=== PATIENT | female | born 1965 | race African-American/Black ===

== ENCOUNTER 2016-11-11 12:41 | Emergency (ER) | payer MEDICAID ==
[~2016-11-11] VITALS: Ht 144.8 cm; Wt 121.6 kg
[~2016-11-11 12:41] MED LIST: ALBU18HF INH; ALBU8.5H5 PO; AMLO5TAB2 PO; ASPI-515 PO; BENZ100C4 PO; ENAL10TA PO; FLUT1AER INH; GABA300C10 PO; GLIM1TAB2 PO; GLIP10TA13 PO; GUAI200T3 PO; HYDR12.53 PO; IBUP800T PO; INSU100I18 SQ-INSULIN; INSU100V8 IM; INSU100V8 SQ; IPRA3AMP NPPB; METF500T4 PO; OMEP-110 PO; PRED20TA PO
[2016-11-11] MEDS ORDERED: MORPHINE SULFATE 4 MG/ML, 1ML ONE (13:55)
[2016-11-11] MEDS ORDERED: ONDANSETRON 2MG/ML, 2ML ONE (13:56)
[2016-11-11] MEDS ORDERED: MORPHINE SULFATE 4 MG/ML, 1ML IVPush PRN (14:00)
[2016-11-11] MEDS ORDERED: SODIUM CHLORIDE 0.9% 1,000ML IVBOLUS ONE (14:00)
[2016-11-11] MEDS ORDERED: ONDANSETRON 2MG/ML, 2ML IVPush ONE (14:00)
[2016-11-11] MEDS ORDERED: SODIUM CHLORIDE FLUSH 10ML SYR IVF ONE (14:00)
[2016-11-11] MEDS ORDERED: HYDROmorphone 1 MG/ML, 1ML ONE (15:11)
[2016-11-11 15:13] LABS: ASPARTATE AMINO TRANSFERASE 9 U/L (15-37); BLOOD UREA NITROGEN 30 mg/dL (7-18)
[2016-11-11] MEDS ORDERED: HYDROmorphone 1 MG/ML, 1ML IM ONE (15:30)
[2016-11-11 15:52] LABS: PATH.CAST-FLAG NOT PRESENT; SPERM-FLAG NOT PRESENT; SRC-FLAG NOT PRESENT; XTAL-FLAG NOT PRESENT; YLC-FLAG NOT PRESENT
[2016-11-11] MEDS ORDERED: HYDR12.53 PO (16:10)
[2016-11-11 17:11] VITALS: BP 154/89
[2016-11-11] MEDS ORDERED: OMNIPAQUE 350 MG/ML, 150 ML BOTTLE ONE (17:53)
[2016-11-11] MEDS ORDERED: HYDROcodone/APAP 5/325 TABLET PO ONE (18:00)
[2016-11-11] MEDS ORDERED: HYDROcodone/APAP 5/325 TABLET ONE (18:03)
== END 2016-11-11 18:09 ==
LOC: ED 14:31
DX: K42.9 Umbilical hernia without obstruction or gangrene (principal); E11.9 Type 2 diabetes mellitus without complications; I10 Essential (primary) hypertension; J45.909 Unspecified asthma, uncomplicated
CPT/HCPCS: 36415; 74177; 80053; 81001; 83690; 85025; 87086; 93005; 96361; 96372; 96374; 99285; J1170; J2405; J7030; Q9967

== ENCOUNTER 2016-12-19 13:16 | Inpatient (IN) | payer MEDICAID ==
[~2016-12-19] VITALS: Ht 144.8 cm; Wt 122.2 kg
[2016-12-19] MEDS ORDERED: LACTATED RINGERS 1,000 ML IV SCH (13:44)
[2016-12-19 14:17] VITALS: BP 145/86
[2016-12-19] MEDS ORDERED: FENTANYL PF 250 MCG/5ML ONE ×2 (14:34→17:31)
[2016-12-19] MEDS ORDERED: MIDAZOLAM 1 MG/ML, 2ML ONE (14:34)
[2016-12-19] MEDS ORDERED: INSU100I18 SQ-INSULIN (14:53)
[2016-12-19] MEDS ORDERED: GLIM2TAB2 PO (14:53)
[2016-12-19] MEDS ORDERED: [UNRECOGNIZED DRUG - OTHER] PO (14:53)
[2016-12-19] MEDS ORDERED: INSU100V8 SQ (14:54)
[2016-12-19] MEDS ORDERED: FLUT1AER INH (14:54)
[2016-12-19] MEDS ORDERED: INSU300I SQ-INSULIN (15:05)
[2016-12-19] MEDS ORDERED: MEPERIDINE/PF 25MG/0.5ML IVPush PRN (17:00)
[2016-12-19] MEDS ORDERED: PROMETHAZINE 25 MG/ML, 1ML IV PRN (17:00)
[2016-12-19] MEDS ORDERED: ROCURONIUM 10 MG/ML ONE (17:00)
[2016-12-19] MEDS ORDERED: LABETALOL 5MG/ML, 20ML IV PRN (17:00)
[2016-12-19] MEDS ORDERED: OXYcodone 5 MG/5 ML ORAL.SOL UDC PO PRN (17:00)
[2016-12-19] MEDS ORDERED: NEOSTIGMINE 1 MG/ML, 10ML ONE (17:00)
[2016-12-19] MEDS ORDERED: ONDANSETRON 2MG/ML, 2ML ONE ×2 (17:00→19:27)
[2016-12-19] MEDS ORDERED: ONDANSETRON 2MG/ML, 2ML IVPush PRN ×2 (17:00→22:30)
[2016-12-19] MEDS ORDERED: GLYCOPYRROLATE 0.2MG/1ML ONE (17:00)
[2016-12-19] MEDS ORDERED: PROPOFOL 10 MG/ML, 20ML ONE (17:00)
[2016-12-19] MEDS ORDERED: hydrALAzine 20 MG/ML, 1ML IV PRN (17:00)
[2016-12-19] MEDS ORDERED: LABETALOL 5MG/ML 40ML VIAL ONE (17:00)
[2016-12-19] MEDS ORDERED: HYDROmorphone 1 MG/ML, 1ML IV PRN (17:00)
[2016-12-19] MEDS ORDERED: METOCLOPRAMIDE 5 MG/ML, 2ML IV PRN (17:00)
[2016-12-19] MEDS ORDERED: CEFAZOLIN 1,000 MG ONE (17:00)
[2016-12-19] MEDS ORDERED: BUPIVACAINE/PF-EPI 0.5% 1:200K IM ONE (17:08)
[2016-12-19] MEDS ORDERED: ALBUTEROL SULFATE 2.5 MG/3 ML ONE (19:14)
[2016-12-19] MEDS ORDERED: FENTANYL PF 100 MCG/2ML ONE (19:23)
[2016-12-19] MEDS ORDERED: OXYcodone 5 MG/5 ML ORAL.SOL UDC ONE ×2 (19:23→19:24)
[2016-12-19] MEDS ORDERED: HYDROmorphone 1 MG/ML, 1ML ONE (19:23)
[2016-12-19] MEDS: FENTANYL PF 100 MCG/2ML IV PRN ×2 (19:25→19:44)
[2016-12-19] MEDS ORDERED: hydrALAzine 20 MG/ML, 1ML ONE (19:49)
[2016-12-19] MEDS ORDERED: PROMETHAZINE 25 MG/ML, 1ML ONE (19:49)
[2016-12-19] MEDS ORDERED: INSULIN SINGLE DOSE, ER SQ-INSULIN ONE (20:17)
[2016-12-19] MEDS ORDERED: INSULIN REGULAR 100 UNITS/ML, 3ML VIAL SQ-INSULIN ONE (20:30)
[2016-12-19] MEDS ORDERED: ALBUTEROL SULFATE 2.5 MG/3 ML NPPB PRN (22:30)
[2016-12-19] MEDS ORDERED: DIPHENHYDRAMINE 50 MG/ML, 1ML IVPush PRN (22:30)
[2016-12-19] MEDS ORDERED: HYDROmorphone 2 MG/ML, 1ML IV PRN (22:30)
[2016-12-19] MEDS: LACTATED RINGERS 1,000 ML IV SCH (22:30)
[2016-12-20] MEDS: metFORMIN 500 MG TABLET PO SCH ×3 (00:34→16:34)
[2016-12-20] MEDS: INSULIN DETEMIR 100 UNITS/ML, PEN SQ-INSULIN SCH ×3 (00:34→21:18)
[2016-12-20] MEDS: ENALAPRIL 10 MG TABLET PO SCH (00:35)
[2016-12-20] MEDS: AMLODIPINE 5 MG TABLET PO SCH (00:35)
[2016-12-20 03:05] VITALS: BP 176/82
[2016-12-20] MEDS: HYDROcodone/APAP 10/325 MG TABLET PO PRN ×3 (05:30→19:50)
[2016-12-20] MEDS: ALBUTEROL/IPRATROPIUM 2.5MG/0.5MG, 3 ML NPPB SCH ×4 (07:00→18:00)
[2016-12-20 07:25] VITALS: BP 154/84
[2016-12-20] MEDS: GUAIFENESIN 100 MG/5 ML, 5ML UDC PO SCH (08:59)
[2016-12-20] MEDS: HYDROCHLOROTHIAZIDE 12.5 MG CAPSULE PO SCH (08:59)
[2016-12-20] MEDS: ASPIRIN 81 MG TABLET CHEW PO SCH (08:59)
[2016-12-20] MEDS: GLIMEPIRIDE 1 MG TABLET PO SCH (09:00)
[2016-12-20] MEDS: GABAPENTIN 300 MG CAPSULE PO SCH ×2 (09:00→21:17)
[2016-12-20] MEDS ORDERED: ENALAPRIL 10 MG TABLET PO SCH (09:00)
[2016-12-20] MEDS ORDERED: AMLODIPINE 5 MG TABLET PO SCH (09:00)
[2016-12-20] MEDS: INSULIN ASPART 100 UNITS/ML, PEN SQ-INSULIN SCH (09:07)
[2016-12-20] MEDS: LACTATED RINGERS 1,000 ML IV SCH ×2 (11:37→21:18)
[2016-12-20] MEDS: FLUTICASONE/VILANTEROL 100-25MCG/INH INH SCH (11:37)
[2016-12-20 14:45] VITALS: BP 137/74
[2016-12-20 18:57] VITALS: BP 169/91
[2016-12-21] MEDS: HYDROcodone/APAP 10/325 MG TABLET PO PRN ×2 (00:39→05:28)
[2016-12-21] MEDS ORDERED: HYDR-3307 PO (00:54)
[2016-12-21 01:17] VITALS: BP 130/74
[2016-12-21 06:44] VITALS: BP 123/75
[2016-12-21] MEDS: FLUTICASONE/VILANTEROL 100-25MCG/INH INH SCH (08:25)
[2016-12-21] MEDS: GLIMEPIRIDE 1 MG TABLET PO SCH (08:26)
[2016-12-21] MEDS: ASPIRIN 81 MG TABLET CHEW PO SCH (08:26)
[2016-12-21] MEDS: HYDROCHLOROTHIAZIDE 12.5 MG CAPSULE PO SCH (08:26)
[2016-12-21] MEDS: metFORMIN 500 MG TABLET PO SCH (08:26)
[2016-12-21] MEDS: ENALAPRIL 10 MG TABLET PO SCH (08:26)
[2016-12-21] MEDS: GABAPENTIN 300 MG CAPSULE PO SCH (08:26)
[2016-12-21] MEDS: INSULIN ASPART 100 UNITS/ML, PEN SQ-INSULIN SCH (08:27)
[2016-12-21] MEDS: INSULIN DETEMIR 100 UNITS/ML, PEN SQ-INSULIN SCH (08:27)
[2016-12-21] MEDS: GUAIFENESIN 100 MG/5 ML, 5ML UDC PO SCH (08:27)
[2016-12-21] MEDS: AMLODIPINE 5 MG TABLET PO SCH (08:27)
[2016-12-21] MEDS: ALBUTEROL/IPRATROPIUM 2.5MG/0.5MG, 3 ML NPPB SCH (08:55)
[2016-12-21 10:29] VITALS: BP 145/74
== END 2016-12-21 11:05 | disposition home or self-care (01) | DRG 353 ==
LOC: OUT 13:16 → 4NOR 21:51 → OUT 22:45 → 4NOR 22:45 → OBSVTOIN 12-20 08:00
PROVIDERS: ADMIT Surgery; ATTEND Surgery
PROC: 8E0W4CZ Robotic Assisted Procedure of Trunk Region, Percutaneous Endoscopic Approach (ICD-10-PCS; 2016-12-19)
PROC: 0WUF4JZ Supplement Abdominal Wall with Synthetic Substitute, Percutaneous Endoscopic Approach (ICD-10-PCS; principal; 2016-12-19 15:30)
DX: K43.6 Other and unspecified ventral hernia with obstruction, without gangrene (principal); J95.821 Acute postprocedural respiratory failure; Z68.43 Body mass index [BMI] 50.0-59.9, adult; E66.9 Obesity, unspecified; I10 Essential (primary) hypertension; M19.90 Unspecified osteoarthritis, unspecified site; J44.9 Chronic obstructive pulmonary disease, unspecified; E11.9 Type 2 diabetes mellitus without complications; K43.0 Incisional hernia with obstruction, without gangrene; Z98.51 Tubal ligation status; Z87.891 Personal history of nicotine dependence; Z82.49 Family history of ischemic heart disease and other diseases of the circulatory system; Z80.3 Family history of malignant neoplasm of breast
CPT/HCPCS: 36415; 82962; 85025; 94640; G0378; J0690; J1170; J1815; J2250; J2405; J2550; J2704; J2710; J3010; J3490; J7613; J7620; C1781; J7120

== ENCOUNTER 2016-12-23 21:18 | Emergency (ER) | payer MEDICAID ==
[~2016-12-23] VITALS: Ht 144.8 cm; Wt 122.2 kg
[~2016-12-23 21:18] MED LIST changes: +GLIM2TAB2 PO; +HYDR-3307 PO; +INSU300I SQ-INSULIN; +[UNRECOGNIZED DRUG - OTHER] PO
[2016-12-23 21:20] VITALS: BP 128/77
[2016-12-23] MEDS ORDERED: MUPIROCIN OINT 2%, 22GM TP ONE (22:30)
== END 2016-12-23 22:52 | disposition home or self-care (01) ==
LOC: ED 22:23
DX: T81.31XA Disruption of external operation (surgical) wound, not elsewhere classified, initial encounter (principal); Z90.49 Acquired absence of other specified parts of digestive tract; E66.01 Morbid (severe) obesity due to excess calories; I10 Essential (primary) hypertension; J45.909 Unspecified asthma, uncomplicated; K75.9 Inflammatory liver disease, unspecified; M19.90 Unspecified osteoarthritis, unspecified site; Z68.43 Body mass index [BMI] 50.0-59.9, adult; E11.9 Type 2 diabetes mellitus without complications
CPT/HCPCS: 99282

== ENCOUNTER 2017-02-15 12:50 | Inpatient (IN) | payer MEDICAID ==
[~2017-02-15] VITALS: Ht 144.8 cm; Wt 125.4 kg
[~2017-02-15 12:50] MED LIST changes: +BENZ100C17 PO; -BENZ100C4 PO; +IBUP-1223 PO; -IBUP800T PO
[2017-02-15] MEDS ORDERED: SODIUM CHLORIDE FLUSH 10ML SYR IVF ONE (13:00)
[2017-02-15] MEDS ORDERED: MORPHINE SULFATE 4 MG/ML, 1ML IVPush PRN (13:00)
[2017-02-15] MEDS ORDERED: ONDANSETRON 2MG/ML, 2ML IVPush ONE (13:00)
[2017-02-15] MEDS ORDERED: MORPHINE SULFATE 4 MG/ML, 1ML ONE ×2 (13:22→15:00)
[2017-02-15] MEDS ORDERED: ONDANSETRON 2MG/ML, 2ML ONE (13:22)
[2017-02-15 13:23] LABS: HEMATOCRIT 38.3 % (34.6-47.8); HEMOGLOBIN 12.3 g/dL (11.7-16.4); WHITE BLOOD COUNT 8.9 x10^3/uL (3.4-10)
[2017-02-15] MEDS: PLEASE ENTER HEIGHT AND WEIGHT MC SCH ×2 (13:25→21:30)
[2017-02-15 13:32] LABS: BLOOD UREA NITROGEN 31 mg/dL (7-18)
[2017-02-15] MEDS ORDERED: SODIUM CHLORIDE 0.9%, 500ML IVBOLUS ONE (14:00)
[2017-02-15] MEDS ORDERED: GADOBUTROL 10 MMOL/10 ML PFS ONE (14:39)
[2017-02-15] MEDS: INSULIN DETEMIR 100 UNITS/ML, PEN SQ-INSULIN SCH ×2 (16:30→22:31)
[2017-02-15] MEDS ORDERED: SENNA/DOCUSATE TABLET PO PRN (16:30)
[2017-02-15] MEDS ORDERED: DEXTROSE 50%, 50ML SYRINGE IVPush PRN (16:30)
[2017-02-15] MEDS ORDERED: BISACODYL 10 MG SUPP PR PRN (16:30)
[2017-02-15] MEDS ORDERED: GLUCAGON 1 MG IM PRN (16:30)
[2017-02-15] MEDS ORDERED: DEXTROSE 4 GM TAB.CHEW PO PRN (16:30)
[2017-02-15] MEDS ORDERED: HYDROcodone/APAP 10/325 MG TABLET ONE (16:49)
[2017-02-15] MEDS ORDERED: ASPIRIN 325 MG TABLET EC ONE (16:50)
[2017-02-15] MEDS: HYDROcodone/APAP 10/325 MG TABLET PO PRN (16:52)
[2017-02-15 17:27] LABS: ASPARTATE AMINO TRANSFERASE 14 U/L (15-37); BLOOD UREA NITROGEN 31 mg/dL (7-18)
[2017-02-15] MEDS ORDERED: ALBUTEROL/IPRATROPIUM 2.5MG/0.5MG, 3 ML NPPB PRN (17:30)
[2017-02-15 19:38] VITALS: BP 150/79
[2017-02-15 20:00] VITALS: BP 150/79
[2017-02-15] MEDS: ACETAMINOPHEN 650 MG/20.3 ML UDC PO PRN (20:13)
[2017-02-15] MEDS: INSULIN ASPART 100 UNITS/ML, PEN SQ-INSULIN SCH (21:00)
[2017-02-15] MEDS: ASPIRIN 325 MG TABLET PO SCH (22:30)
[2017-02-15] MEDS: ATORVASTATIN 80 MG TABLET PO SCH (22:30)
[2017-02-15] MEDS: GABAPENTIN 300 MG CAPSULE PO SCH (22:30)
[2017-02-15] MEDS: DOCUSATE 100 MG CAPSULE PO SCH (22:30)
[2017-02-15] MEDS: SODIUM CHLORIDE 0.9% 1,000 ML IV SCH (22:30)
[2017-02-15] MEDS: SODIUM CHLORIDE FLUSH 10ML SYR IVF SCH (22:30)
[2017-02-15] MEDS: HEPARIN 5,000 UNITS/ML, 1ML SQ SCH (22:31)
[2017-02-16 00:14] VITALS: BP 158/79
[2017-02-16] MEDS: ACETAMINOPHEN 650 MG/20.3 ML UDC PO PRN ×3 (01:29→17:35)
[2017-02-16 04:27] VITALS: BP 138/68
[2017-02-16 04:54] LABS: HEMATOCRIT 35.5 % (34.6-47.8); HEMOGLOBIN 11.6 g/dL (11.7-16.4); WHITE BLOOD COUNT 8.9 x10^3/uL (3.4-10)
[2017-02-16 05:03] LABS: BLOOD UREA NITROGEN 25 mg/dL (7-18)
[2017-02-16 05:09] LABS: ASPARTATE AMINO TRANSFERASE 12 U/L (15-37)
[2017-02-16] MEDS: SODIUM CHLORIDE 0.9% 1,000 ML IV SCH ×2 (05:48→16:49)
[2017-02-16] MEDS: HEPARIN 5,000 UNITS/ML, 1ML SQ SCH ×3 (05:48→20:29)
[2017-02-16] MEDS: ASPIRIN 325 MG TABLET PO SCH (05:48)
[2017-02-16] MEDS: INSULIN ASPART 100 UNITS/ML, PEN SQ-INSULIN SCH ×4 (07:00→20:51)
[2017-02-16 07:06] VITALS: BP 136/75
[2017-02-16] MEDS: INSULIN DETEMIR 100 UNITS/ML, PEN SQ-INSULIN SCH ×2 (08:32→20:51)
[2017-02-16] MEDS: ENALAPRIL 10 MG TABLET PO SCH (08:33)
[2017-02-16] MEDS: DOCUSATE 100 MG CAPSULE PO SCH ×2 (08:33→20:28)
[2017-02-16] MEDS: AMLODIPINE 5 MG TABLET PO SCH (08:33)
[2017-02-16] MEDS: SODIUM CHLORIDE FLUSH 10ML SYR IVF SCH ×2 (08:33→20:29)
[2017-02-16] MEDS: HYDROCHLOROTHIAZIDE 12.5 MG CAPSULE PO SCH (08:33)
[2017-02-16] MEDS: GABAPENTIN 300 MG CAPSULE PO SCH ×2 (08:33→20:29)
[2017-02-16] MEDS: ASPIRIN 81 MG TABLET EC PO SCH (08:41)
[2017-02-16] MEDS: FLUTICASONE/VILANTEROL 100-25MCG/INH INH SCH (09:55)
[2017-02-16 12:08] VITALS: BP 166/88
[2017-02-16] MEDS: HYDROcodone/APAP 10/325 MG TABLET PO PRN ×2 (12:13→20:28)
[2017-02-16 17:37] VITALS: BP 160/66
[2017-02-16 19:18] VITALS: BP 166/83
[2017-02-16] MEDS: ATORVASTATIN 80 MG TABLET PO SCH (20:28)
[2017-02-17 01:05] VITALS: BP 172/93
[2017-02-17] MEDS: SODIUM CHLORIDE 0.9% 1,000 ML IV SCH ×2 (03:23→12:36)
[2017-02-17 03:58] VITALS: BP_SYST 147; BP_SYST 178; BP_DIAS 74; BP_DIAS 75
[2017-02-17] MEDS: ACETAMINOPHEN 650 MG/20.3 ML UDC PO PRN (03:58)
[2017-02-17] MEDS: ASPIRIN 81 MG TABLET EC PO SCH (05:40)
[2017-02-17] MEDS: HEPARIN 5,000 UNITS/ML, 1ML SQ SCH ×2 (05:40→12:37)
[2017-02-17 05:48] LABS: BLOOD UREA NITROGEN 25 mg/dL (7-18)
[2017-02-17 06:57] VITALS: BP 166/92
[2017-02-17] MEDS: ENALAPRIL 10 MG TABLET PO SCH (08:15)
[2017-02-17] MEDS: AMLODIPINE 5 MG TABLET PO SCH (08:15)
[2017-02-17] MEDS: DOCUSATE 100 MG CAPSULE PO SCH (08:15)
[2017-02-17] MEDS: GABAPENTIN 300 MG CAPSULE PO SCH (08:15)
[2017-02-17] MEDS: HYDROCHLOROTHIAZIDE 12.5 MG CAPSULE PO SCH (08:15)
[2017-02-17] MEDS: FLUTICASONE/VILANTEROL 100-25MCG/INH INH SCH (08:16)
[2017-02-17] MEDS: INSULIN DETEMIR 100 UNITS/ML, PEN SQ-INSULIN SCH (08:16)
[2017-02-17] MEDS: HYDROcodone/APAP 10/325 MG TABLET PO PRN ×3 (08:16→16:50)
[2017-02-17] MEDS: SODIUM CHLORIDE FLUSH 10ML SYR IVF SCH (08:16)
[2017-02-17] MEDS: INSULIN ASPART 100 UNITS/ML, PEN SQ-INSULIN SCH ×3 (08:17→16:49)
[2017-02-17 12:57] VITALS: BP 169/90
[2017-02-17] MEDS ORDERED: ASPI-515 PO (14:44)
[2017-02-17] MEDS ORDERED: ATOR-2 PO (14:44)
[2017-02-17 15:48] VITALS: BP 159/89
== END 2017-02-17 17:10 | disposition home or self-care (01) | DRG 65 ==
LOC: ED 13:11 → EDIP 15:59 → 4EST 19:03
PROVIDERS: ADMIT Internal Medicine; ATTEND Internal Medicine
DX: I63.539 Cerebral infarction due to unspecified occlusion or stenosis of unspecified posterior cerebral artery (principal); E44.1 Mild protein-calorie malnutrition; E11.21 Type 2 diabetes mellitus with diabetic nephropathy; E11.40 Type 2 diabetes mellitus with diabetic neuropathy, unspecified; Q21.1 Atrial septal defect; Z68.43 Body mass index [BMI] 50.0-59.9, adult; E11.22 Type 2 diabetes mellitus with diabetic chronic kidney disease; E66.01 Morbid (severe) obesity due to excess calories; H54.7 Unspecified visual loss; I12.9 Hypertensive chronic kidney disease with stage 1 through stage 4 chronic kidney disease, or unspecified chronic kidney disease; J44.9 Chronic obstructive pulmonary disease, unspecified; M19.90 Unspecified osteoarthritis, unspecified site; M54.30 Sciatica, unspecified side; N18.3 Chronic kidney disease, stage 3 (moderate); Z79.4 Long term (current) use of insulin; Z79.82 Long term (current) use of aspirin; Z87.891 Personal history of nicotine dependence; Z99.81 Dependence on supplemental oxygen
CPT/HCPCS: 36415; 70553; 80048; 80053; 80061; 82040; 82962; 83036; 85025; 85610; 85651; 93005; 93306; 93880; 96374; 96375; A9585; J1644; J1815; J2405; 92523-GN; J7030; J7040

== ENCOUNTER → 2017-12-19 | Outpatient (CLI) | payer MEDICAID ==
[~2017-12-19] MED LIST changes: +ATOR-2 PO; +BENZ-17 PO; -BENZ100C17 PO; -METF500T4 PO; +METF500T5 PO
== END | disposition home or self-care (01) ==
LOC: CVU 15:48
PROVIDERS: ATTEND Internal Medicine
DX: I07.1 Rheumatic tricuspid insufficiency (principal); I11.9 Hypertensive heart disease without heart failure; E11.9 Type 2 diabetes mellitus without complications; J44.9 Chronic obstructive pulmonary disease, unspecified; J45.909 Unspecified asthma, uncomplicated; Q21.1 Atrial septal defect; Z86.73 Personal history of transient ischemic attack (TIA), and cerebral infarction without residual deficits
CPT/HCPCS: 93308; 93321; 93325

== ENCOUNTER 2018-08-11 09:58 | Emergency (ER) | payer MEDICAID ==
[~2018-08-11] VITALS: Ht 144.8 cm; Wt 113.0 kg
[~2018-08-11 09:58] MED LIST changes: +AMLO-150 PO; -AMLO5TAB2 PO; +HYDR12.517 PO; -HYDR12.53 PO; -IPRA3AMP NPPB; +IPRA3AMP30 NPPB; +METF500T17 PO; -METF500T5 PO
--- NOTE | 2018-08-11 10:15 | NUR ---
PT TO ED FOR SOB STARTING LAST NIGHT IMMEDIATELY SMOKING MARIJUANA. PER EMS, PT WEARS 2LNC AT ALL TIMES. UPON ARRIVAL AT SCENE, PT WAS WEARING 4LNC WTIH SAT AT 72%. PT ARRIVES ON 15L NRB AND IS CONTINUED IN ROOM. IV WAS ESTABLISHED EN ROUTE AND 1 DUONEB TX WAS GIVEN BY EMS. PT CONNECTED TO ALL MONITORS. HTN 160S (PT STATES HAS NOT TAKEN DAILY MEDICATIONS TODAY), ALL OTHER VSS. EDMD ASSESSMENT COMPLETE. AWAITING ORDERS.
[2018-08-11] MEDS ORDERED: methylPREDNISolone SOD SUCC 125 MG/2 ML ONE (10:24)
[2018-08-11] MEDS ORDERED: ALBUTEROL/IPRATROPIUM 2.5MG/0.5MG, 3 ML ONE (10:26)
[2018-08-11] MEDS ORDERED: PLEASE ENTER HEIGHT AND WEIGHT MC SCH (10:30)
[2018-08-11] MEDS ORDERED: methylPREDNISolone SOD SUCC 125 MG/2 ML IVP ONE (10:30)
[2018-08-11] MEDS ORDERED: ALBUTEROL/IPRATROPIUM 2.5MG/0.5MG, 3 ML NPPB SCH (10:30)
[2018-08-11] MEDS ORDERED: INSU100V8 SQ (10:37)
[2018-08-11] MEDS ORDERED: ENAL20TA PO (10:37)
[2018-08-11] MEDS ORDERED: CLOP75TA PO (10:37)
[2018-08-11] MEDS ORDERED: METF500T17 PO (10:37)
[2018-08-11] MEDS ORDERED: HYDR25TA6 PO (10:37)
[2018-08-11] MEDS ORDERED: MELA10TA PO (10:37)
[2018-08-11] MEDS ORDERED: GABA300C10 PO (10:37)
[2018-08-11 10:52] LABS: BASOPHILS # (AUTO) 0.03 x10^3/uL (0-0.1); BASOPHILS % (AUTO) 0 % (0-1); EOSINOPHILS # (AUTO) 0.07 x10^3/uL (0-0.4); EOSINOPHILS % (AUTO) 1 % (1-7); LYMPHOCYTES % (AUTO) 16 % (22-44); MD NO; MEAN CORPUSCULAR HEMOGLOBIN 29.2 pg (27.0-34.8); MEAN CORPUSCULAR HGB CONC 31.4 g/dL (32.4-35.8); MEAN CORPUSCULAR VOLUME 92.9 fL (80-100); MEAN PLATELET VOLUME 7.7 fL (7.4-10.4); MONOCYTES # (AUTO) 0.15 x10^3/uL (0.2-0.8); MONOCYTES % (AUTO) 2 % (2-9); NEUTROPHILS # (AUTO) 7.14 x10^3/uL (1.8-6.8); NEUTROPHILS % (AUTO) 81 % (42-75); PLATELET COUNT 368 x10^3/uL (130-400); RED BLOOD COUNT 4.47 x10^6/uL (3.82-5.3); RED CELL DISTRIBUTION WIDTH 17.7 % (9.6-15.2)
[2018-08-11 10:59] LABS: ALBUMIN 3.4 g/dL (3.4-5.0); CALCIUM 8.9 mg/dL (8.5-10.1); CREATININE 1.67 mg/dL (0.55-1.02)
[2018-08-11 11:06] LABS: ANION GAP 4 mmol/L (5-15); CHLORIDE 108 mmol/L (98-107)
--- NOTE | 2018-08-11 11:18 | NUR ---
PT MEDICATED PER AUG. XRAY COMPLETE. LABS DRAWN. LAB AT BEDSIDE AT THIS TIME TO COLLECT NEW ORDER FOR BLOOD CULTURES. VSS ON 15L NRB. NO NEEDS AT THIS TIME. CALL [facility].
--- NOTE | 2018-08-11 12:36 | NUR ---
all results back at this time. chart up for rechceck.
[2018-08-11 12:47] VITALS: BP 166/85
--- NOTE | 2018-08-11 12:48 | NUR ---
pt resting in room with eyes closed. vss. no needs at this time. call light within reach. chart up for recheck.
== END 2018-08-11 14:35 | disposition home or self-care (01) ==
LOC: ED 11:02
DX: J44.1 Chronic obstructive pulmonary disease with (acute) exacerbation (principal); I10 Essential (primary) hypertension; E11.9 Type 2 diabetes mellitus without complications; J44.9 Chronic obstructive pulmonary disease, unspecified; Z86.73 Personal history of transient ischemic attack (TIA), and cerebral infarction without residual deficits; Z90.89 Acquired absence of other organs; Z87.891 Personal history of nicotine dependence
CPT/HCPCS: 36415; 71045; 80048; 82040; 83605; 84145; 85025; 87040; 93005; 94640; 96374; 99284; J2930; J7620

== ENCOUNTER 2018-09-22 14:07 | Emergency (ER) | payer MEDICAID ==
[~2018-09-22] VITALS: Ht 144.8 cm; Wt 117.1 kg
[~2018-09-22 14:07] MED LIST changes: +CLOP75TA PO; +ENAL20TA PO; +HYDR25TA6 PO; +MELA10TA PO
[2018-09-22] MEDS ORDERED: FAMOTIDINE 20 MG TABLET ONE (14:22)
[2018-09-22] MEDS ORDERED: DIPHENHYDRAMINE 25 MG CAPSULE ONE (14:22)
--- NOTE | 2018-09-22 14:28 | NUR ---
PT TO ED FOR ALLERGIC REACTION TO UNKNOWN FOOD YESTERDAY. PT STATES RIGHT SIDE OF UPPER LIP IS SWOLLEN. THIS RN IS UNABLE TO APPRECIATE EDEMA. PT STATES SAME HAPPENED 2 WEEKS AGO, BUT LIP SWELLING WENT DOWN SAME DAY. PT STATES NO SOB OR ANY OTHER SWELLING. PT ABLE TO MAINTAIN PATENT AIRWAY BY SELF. CONNECTED TO MONITORS. VSS. EDMD TO BEDSIDE FOR ASSESSMENT. PT MEDICATED PER AUG. AWAITING FURTHER ORDERS.
[2018-09-22] MEDS ORDERED: FAMOTIDINE 20 MG TABLET PO ONE (14:30)
[2018-09-22] MEDS ORDERED: DIPHENHYDRAMINE 25 MG CAPSULE PO ONE (14:30)
[2018-09-22 14:32] VITALS: BP 135/74
== END 2018-09-22 14:56 | disposition home or self-care (01) ==
LOC: ED 14:15
DX: T78.3XXA Angioneurotic edema, initial encounter (principal); I10 Essential (primary) hypertension; E11.9 Type 2 diabetes mellitus without complications; J45.909 Unspecified asthma, uncomplicated; Z86.19 Personal history of other infectious and parasitic diseases; Y92.9 Unspecified place or not applicable
CPT/HCPCS: 99283; Q0163

== ENCOUNTER 2018-09-30 09:20 | Emergency (ER) | payer MEDICAID ==
[~2018-09-30] VITALS: Ht 144.8 cm; Wt 118.9 kg
[2018-09-30 09:23] VITALS: BP 165/94
--- NOTE | 2018-09-30 09:43 | NUR ---
PT HAS SWELING OF LIPS BUT DENIES TONGUE OR THROAT SWELLING. PT HAD BEEN SEEN FOR SAME AND TAKEN OFF [employer]LYSSES INHIBITOR. MD TALKING WITH PT ABOUT TX. PT UNABLE TO TAKE STEROIDS BECAUSE OF UPCOMING SCHEDULED SURGERY. TO BE GIVEN PRESCRIPTION FOR EPI PEN WITH INSTRUCTIONS GIVEN BY MD WHEN TO USE IT.
[2018-09-30] MEDS ORDERED: DIPHENHYDRAMINE 25 MG CAPSULE ONE (09:48)
[2018-09-30] MEDS ORDERED: DIPHENHYDRAMINE 25 MG CAPSULE PO ONE (10:00)
== END 2018-09-30 09:56 | disposition home or self-care (01) ==
LOC: ED 09:47
DX: D84.1 Defects in the complement system (principal); I10 Essential (primary) hypertension; E11.9 Type 2 diabetes mellitus without complications; J45.909 Unspecified asthma, uncomplicated; Z86.73 Personal history of transient ischemic attack (TIA), and cerebral infarction without residual deficits; Z90.49 Acquired absence of other specified parts of digestive tract; Z79.899 Other long term (current) drug therapy
CPT/HCPCS: 99283; Q0163

== ENCOUNTER 2018-10-03 12:41 | Emergency (ER) | payer MEDICAID ==
[~2018-10-03] VITALS: Ht 144.8 cm; Wt 117.0 kg
--- NOTE | 2018-10-03 13:17 | NUR ---
pt presents to ED with c/o intermittent angioedema, tongue swelling, and itchy generalized rash x 2 weeks. pt states 8 days ago, she was taken off of enalapril by pcp and started on a new bp med, however symptoms have not subsided. pt unable to recall name of new bp med. pt is a&o, resps even, shallow, unlabored. all monitors in place. pt's spo2 90% on room air, oxygen applied at 2L/min via NC. awaiting MD and orders at this time. call light in reach, warm blanket provided.
[2018-10-03] MEDS ORDERED: FAMOTIDINE 20 MG TABLET ONE (13:54)
[2018-10-03] MEDS ORDERED: DIPHENHYDRAMINE 25 MG CAPSULE ONE (13:54)
[2018-10-03] MEDS ORDERED: DIPHENHYDRAMINE 25 MG CAPSULE PO ONE (14:00)
[2018-10-03] MEDS ORDERED: ALBUTEROL/IPRATROPIUM 2.5MG/0.5MG, 3 ML NPPB ONE (14:00)
[2018-10-03] MEDS ORDERED: FAMOTIDINE 20 MG TABLET PO ONE (14:00)
[2018-10-03] MEDS ORDERED: ALBUTEROL/IPRATROPIUM 2.5MG/0.5MG, 3 ML ONE (14:11)
--- NOTE | 2018-10-03 15:00 | NUR ---
PT SLEEPING, RESPS EVEN AND UNLABORED. AWAITING FURTHER ORDERS AT THIS TIME.
[2018-10-03 15:16] VITALS: BP 124/75
--- NOTE | 2018-10-03 15:29 | NUR ---
pt provided with dc instructions and script, educated regarding dc rx for prednisone. pt states she wears oxygen at home / and has own portable oxygen in car. pt is tolerating room air at dc, however was wheeled to dc desk wearing oxygen at 2l/min, states she will reapply own portable oxygen when in car. pt educated not to drive d/t benadryl given, pt states family will drive her home. pt a&o, resps even and unlabored. speaking in full sentences without difficulty. pt states symptoms have improved s/p meds, lips appear less edematous. pt tolerating po intake with no s/sx aspiration. pt amb with steady gait at time of dc. nadn at dc.
== END 2018-10-03 15:30 | disposition home or self-care (01) ==
LOC: ED 13:25
DX: T78.3XXA Angioneurotic edema, initial encounter (principal); I10 Essential (primary) hypertension; E11.9 Type 2 diabetes mellitus without complications; J45.909 Unspecified asthma, uncomplicated; M19.90 Unspecified osteoarthritis, unspecified site
CPT/HCPCS: 94640; 99284; J7512; J7620; Q0163

== ENCOUNTER 2018-10-28 11:39 | Inpatient (IN) | payer MEDICAID ==
[~2018-10-28] VITALS: Ht 144.8 cm; Wt 122.1 kg
[2018-10-28] MEDS ORDERED: EPINEPHRINE 1 MG/ML, 1ML ONE (11:50)
[2018-10-28] MEDS ORDERED: FAMOTIDINE 20 MG/2 ML ONE (11:54)
[2018-10-28] MEDS ORDERED: DEXAMETHASONE 4 MG/ML, 5ML ONE (11:54)
[2018-10-28] MEDS ORDERED: DIPHENHYDRAMINE 50 MG/ML, 1ML ONE (11:54)
[2018-10-28] MEDS ORDERED: DIPHENHYDRAMINE 50 MG/ML, 1ML IVPush ONE (12:00)
[2018-10-28] MEDS ORDERED: DEXAMETHASONE 4 MG/ML, 1ML IVPush ONE (12:00)
[2018-10-28] MEDS ORDERED: EPINEPHRINE 1 MG/ML, 1ML SQ ONE (12:00)
[2018-10-28] MEDS ORDERED: FAMOTIDINE 20 MG/2 ML IVPush ONE (12:00)
[2018-10-28] MEDS ORDERED: SODIUM CHLORIDE FLUSH 10ML SYR IVF ONE (12:00)
--- NOTE | 2018-10-28 12:02 | NUR ---
PT TO ED FOR TONGUE SWELLING STARTING THIS AM, HX OF SAME. PT ABLE TO MANAGE SECRETIONS AND AIRWAY PATEN DESPITE SWELLING. PT TO TR04, SUCTION IN PLACE AND PROVIDED TO PT. CP MONITORS IN PLACE. MD TO BEDSIDE. ORDERS RECIEVED AND IMPLEMENTED. Addendum: 10/28/18 at 1230 by GHADA PT TO ED FOR TONGUE SWELLING STARTING THIS AM, HX OF SAME. PT ABLE TO MANAGE SECRETIONS AND AIRWAY PATENT DESPITE SWELLING. PT TO TR04, SUCTION IN PLACE AND PROVIDED TO PT. CP MONITORS IN PLACE. MD TO BEDSIDE. ORDERS RECIEVED AND IMPLEMENTED.
[2018-10-28 12:11] LABS: BASOPHILS # (AUTO) 0.02 x10^3/uL (0-0.1); BASOPHILS % (AUTO) 0 % (0-1); EOSINOPHILS # (AUTO) 0.18 x10^3/uL (0-0.4); EOSINOPHILS % (AUTO) 2 % (1-7); LYMPHOCYTES # (AUTO) 2.34 x10^3/uL (1-3.4); LYMPHOCYTES % (AUTO) 24 % (22-44); MD NO; MEAN CORPUSCULAR HEMOGLOBIN 28.5 pg (27.0-34.8); MEAN CORPUSCULAR HGB CONC 31.2 g/dL (32.4-35.8); MEAN CORPUSCULAR VOLUME 91.1 fL (80-100); MEAN PLATELET VOLUME 8.4 fL (7.4-10.4); MONOCYTES # (AUTO) 0.19 x10^3/uL (0.2-0.8); MONOCYTES % (AUTO) 2 % (2-9); NEUTROPHILS # (AUTO) 6.99 x10^3/uL (1.8-6.8); NEUTROPHILS % (AUTO) 72 % (42-75); PLATELET COUNT 327 x10^3/uL (130-400); RED BLOOD COUNT 5.01 x10^6/uL (3.82-5.3); RED CELL DISTRIBUTION WIDTH 18.7 % (9.6-15.2)
[2018-10-28 12:25] LABS: ALBUMIN 3.3 g/dL (3.4-5.0); ANION GAP 6 mmol/L (5-15); CALCIUM 9.3 mg/dL (8.5-10.1); CHLORIDE 106 mmol/L (98-107)
[2018-10-28 12:28] LABS: ALANINE AMINOTRANSFERASE 18 U/L (12-78); ALKALINE PHOSPHATASE 76 U/L (45-117); BILIRUBIN,TOTAL 0.3 mg/dL (0.2-1.0); CREATININE 1.39 mg/dL (0.55-1.02); TOTAL PROTEIN 7.6 g/dL (6.4-8.2)
--- NOTE | 2018-10-28 13:19 | NUR ---
DR BYERS TO BEDSIDE FOR EXAM. PT CONDITION HS NOT CHANGED. A&OX4. ANGIODEMEA TO TONGUE PERSISTS, PATENT ABLE TO MAINTAIN SECRETIONS AND AIRWAY PATENT. ALL CONCERNS ADRESSED.
--- NOTE | 2018-10-28 13:25 | NUR ---
REPORT TO PHYLICIA CROOKS.
[2018-10-28] MEDS ORDERED: GLUCAGON 1 MG IM PRN (13:30)
[2018-10-28] MEDS ORDERED: DEXTROSE 50%, 50ML SYRINGE IVPush PRN (13:30)
[2018-10-28] MEDS ORDERED: ONDANSETRON 2MG/ML, 2ML IVPush PRN (13:30)
[2018-10-28] MEDS ORDERED: SODIUM CHLORIDE FLUSH 10ML SYR IVF PRN (13:30)
[2018-10-28] MEDS ORDERED: DEXTROSE 4 GM TAB.CHEW PO PRN (13:30)
[2018-10-28] MEDS: SODIUM CHLORIDE 0.9% 1,000 ML IV SCH (13:56)
[2018-10-28] MEDS: methylPREDNISolone SOD SUCC 125 MG/2 ML IVPush SCH ×2 (13:56→19:23)
[2018-10-28] MEDS: DIPHENHYDRAMINE 50 MG/ML, 1ML IVPush SCH ×2 (13:56→19:22)
[2018-10-28] MEDS: ENOXAPARIN 40 MG/0.4 ML SQ SCH (13:56)
[2018-10-28 14:12] VITALS: BP 154/82
[2018-10-28] MEDS: ALBUTEROL SULFATE 2.5 MG/3 ML NPPB SCH ×2 (14:15→20:00)
[2018-10-28] MEDS ORDERED: hydrALAzine 20 MG/ML, 1ML ONE (17:39)
[2018-10-28] MEDS: hydrALAzine 20 MG/ML, 1ML IV PRN (17:47)
[2018-10-28] MEDS: INSULIN LISPRO 100 UNITS/ML, PEN SQ-INSULIN SCH ×2 (17:47→19:22)
[2018-10-28] MEDS: SODIUM CHLORIDE FLUSH 10ML SYR IVF SCH (19:23)
[2018-10-28] MEDS: FAMOTIDINE 20 MG/2 ML IVPush SCH (19:23)
[2018-10-28] MEDS: BUDESONIDE 0.5 MG/2 ML INHA NPPB SCH (20:01)
[2018-10-29] MEDS: methylPREDNISolone SOD SUCC 125 MG/2 ML IVPush SCH ×4 (01:16→19:29)
[2018-10-29] MEDS: DIPHENHYDRAMINE 50 MG/ML, 1ML IVPush SCH ×2 (01:16→09:06)
[2018-10-29] MEDS: SODIUM CHLORIDE 0.9% 1,000 ML IV SCH ×2 (01:17→13:32)
[2018-10-29 04:25] LABS: MEAN CORPUSCULAR HEMOGLOBIN 28.1 pg (27.0-34.8); MEAN CORPUSCULAR HGB CONC 30.8 g/dL (32.4-35.8); MEAN CORPUSCULAR VOLUME 91.3 fL (80-100); MEAN PLATELET VOLUME 8.8 fL (7.4-10.4); PLATELET COUNT 311 x10^3/uL (130-400); RED BLOOD COUNT 4.78 x10^6/uL (3.82-5.3); RED CELL DISTRIBUTION WIDTH 18.5 % (9.6-15.2)
[2018-10-29 04:28] LABS: ALBUMIN 2.8 g/dL (3.4-5.0); ANION GAP 8 mmol/L (5-15); CALCIUM 8.6 mg/dL (8.5-10.1); CHLORIDE 108 mmol/L (98-107)
[2018-10-29 04:31] LABS: ALANINE AMINOTRANSFERASE 17 U/L (12-78); ALKALINE PHOSPHATASE 64 U/L (45-117); BILIRUBIN,TOTAL 0.4 mg/dL (0.2-1.0); CREATININE 1.15 mg/dL (0.55-1.02); TOTAL PROTEIN 6.8 g/dL (6.4-8.2)
[2018-10-29 05:42] LABS: BASOPHILS % (AUTO) 0 % (0-1); EOSINOPHILS % (AUTO) 0 % (1-7); LYMPHOCYTES # (AUTO) 0.74 x10^3/uL (1-3.4); LYMPHOCYTES % (AUTO) 9 % (22-44); MD SCAN; MONOCYTES # (AUTO) 0.01 x10^3/uL (0.2-0.8); MONOCYTES % (AUTO) 0 % (2-9); NEUTROPHILS % (AUTO) 91 % (42-75)
[2018-10-29] MEDS: hydrALAzine 20 MG/ML, 1ML IV PRN (06:32)
[2018-10-29] MEDS: ALBUTEROL SULFATE 2.5 MG/3 ML NPPB SCH ×4 (07:00→19:30)
[2018-10-29] MEDS: BUDESONIDE 0.5 MG/2 ML INHA NPPB SCH ×2 (07:35→19:30)
[2018-10-29] MEDS: SODIUM CHLORIDE FLUSH 10ML SYR IVF SCH ×2 (09:00→20:12)
[2018-10-29] MEDS: FAMOTIDINE 20 MG/2 ML IVPush SCH (09:06)
[2018-10-29] MEDS: INSULIN LISPRO 100 UNITS/ML, PEN SQ-INSULIN SCH ×4 (09:06→20:11)
[2018-10-29] MEDS: INSULIN GLARGINE 100 UNITS/ML, PEN SQ-INSULIN SCH ×2 (12:32→20:12)
[2018-10-29] MEDS: ENOXAPARIN 40 MG/0.4 ML SQ SCH (13:31)
[2018-10-29 14:45] VITALS: BP 144/78
[2018-10-29 19:58] VITALS: BP 148/82
[2018-10-29] MEDS ORDERED: MELATONIN 5 MG TABLET PO PRN (20:30)
[2018-10-30] MEDS: methylPREDNISolone SOD SUCC 125 MG/2 ML IVPush SCH ×2 (01:27→08:09)
[2018-10-30 02:03] VITALS: BP 127/76
[2018-10-30] MEDS: SODIUM CHLORIDE 0.9% 1,000 ML IV SCH (04:56)
[2018-10-30 05:20] LABS: MEAN CORPUSCULAR HEMOGLOBIN 27.8 pg (27.0-34.8); MEAN CORPUSCULAR HGB CONC 30.4 g/dL (32.4-35.8); MEAN CORPUSCULAR VOLUME 91.4 fL (80-100); MEAN PLATELET VOLUME 8.8 fL (7.4-10.4); NEUTROPHILS % (AUTO) 95 % (42-75); PLATELET COUNT 314 x10^3/uL (130-400); RED BLOOD COUNT 4.69 x10^6/uL (3.82-5.3); RED CELL DISTRIBUTION WIDTH 18.2 % (9.6-15.2)
[2018-10-30 05:26] LABS: ANION GAP 10 mmol/L (5-15); CALCIUM 8.5 mg/dL (8.5-10.1); CHLORIDE 105 mmol/L (98-107)
[2018-10-30 05:27] LABS: CREATININE 1.46 mg/dL (0.55-1.02)
[2018-10-30] MEDS: ACETAMINOPHEN 325 MG TABLET PO PRN ×2 (05:33→19:55)
[2018-10-30 05:47] LABS: BASOPHILS # (AUTO) 0.04 x10^3/uL (0-0.1); BASOPHILS % (AUTO) 0 % (0-1); EOSINOPHILS # (AUTO) 0.01 x10^3/uL (0-0.4); EOSINOPHILS % (AUTO) 0 % (1-7); LYMPHOCYTES # (AUTO) 0.61 x10^3/uL (1-3.4); LYMPHOCYTES % (AUTO) 5 % (22-44); MD SCAN; MONOCYTES # (AUTO) 0.07 x10^3/uL (0.2-0.8); MONOCYTES % (AUTO) 1 % (2-9); NEUTROPHILS # (AUTO) 12.95 x10^3/uL (1.8-6.8)
[2018-10-30] MEDS: ALBUTEROL SULFATE 2.5 MG/3 ML NPPB SCH ×2 (07:00→10:38)
[2018-10-30 07:53] VITALS: BP 164/91
[2018-10-30] MEDS: INSULIN GLARGINE 100 UNITS/ML, PEN SQ-INSULIN SCH ×3 (08:08→19:56)
[2018-10-30] MEDS: INSULIN LISPRO 100 UNITS/ML, PEN SQ-INSULIN SCH ×4 (08:09→19:55)
[2018-10-30] MEDS: SODIUM CHLORIDE FLUSH 10ML SYR IVF SCH ×2 (08:27→19:56)
[2018-10-30] MEDS: BUDESONIDE 0.5 MG/2 ML INHA NPPB SCH ×2 (09:00→18:55)
[2018-10-30] MEDS: methylPREDNISolone SOD SUCC 40 MG/ML IVPush SCH ×2 (09:00→19:54)
[2018-10-30] MEDS ORDERED: ALBUTEROL SULFATE 2.5 MG/3 ML NPPB PRN (11:00)
[2018-10-30 14:19] VITALS: BP 164/84
[2018-10-30] MEDS: ENOXAPARIN 40 MG/0.4 ML SQ SCH (14:28)
[2018-10-30] MEDS: GABAPENTIN 100 MG CAPSULE PO SCH ×2 (16:47→19:55)
[2018-10-30 18:44] VITALS: BP 153/90
[2018-10-30] MEDS ORDERED: ATORVASTATIN 80 MG TABLET PO SCH (21:00)
[2018-10-30] MEDS ORDERED: MELATONIN 5 MG TABLET PO SCH (21:00)
[2018-10-31 00:15] VITALS: BP 163/93
[2018-10-31] MEDS: GABAPENTIN 100 MG CAPSULE PO SCH (07:51)
[2018-10-31] MEDS: methylPREDNISolone SOD SUCC 40 MG/ML IVPush SCH (07:51)
[2018-10-31] MEDS: SODIUM CHLORIDE FLUSH 10ML SYR IVF SCH (07:52)
[2018-10-31] MEDS: INSULIN GLARGINE 100 UNITS/ML, PEN SQ-INSULIN SCH (07:52)
[2018-10-31] MEDS: INSULIN LISPRO 100 UNITS/ML, PEN SQ-INSULIN SCH ×2 (07:52→12:03)
[2018-10-31 08:25] VITALS: BP 166/102
[2018-10-31] MEDS ORDERED: AMLODIPINE 5 MG TABLET PO SCH (09:00)
[2018-10-31] MEDS ORDERED: HYDROCHLOROTHIAZIDE 25 MG TABLET PO SCH (09:00)
[2018-10-31] MEDS ORDERED: CLOPIDOGREL 75 MG TABLET PO SCH (09:00)
[2018-10-31] MEDS: BUDESONIDE 0.5 MG/2 ML INHA NPPB SCH (09:00)
[2018-10-31 09:39] VITALS: BP 153/98
[2018-10-31 13:28] VITALS: BP 155/81
[2018-10-31] MEDS: ENOXAPARIN 40 MG/0.4 ML SQ SCH (15:17)
[2018-10-31 17:16] LABS: ANION GAP 6 mmol/L (5-15); CALCIUM 9.3 mg/dL (8.5-10.1); CHLORIDE 103 mmol/L (98-107); CREATININE 1.37 mg/dL (0.55-1.02)
[2018-10-31] MEDS ORDERED: PRED10TA PO (17:26)
[2018-10-31] MEDS ORDERED: OMEP-110 PO (17:26)
== END 2018-10-31 17:55 | disposition home or self-care (01) | DRG 916 ==
LOC: ED 12:45 → SUATTDRO 13:01 → EDIP 13:03 → CCU 13:29 → 4WST 10-29 18:10
PROVIDERS: ADMIT Internal Medicine; ATTEND Internal Medicine
DX: T78.3XXA Angioneurotic edema, initial encounter (principal); Z68.43 Body mass index [BMI] 50.0-59.9, adult; J96.10 Chronic respiratory failure, unspecified whether with hypoxia or hypercapnia; Q21.1 Atrial septal defect; M19.90 Unspecified osteoarthritis, unspecified site; E11.21 Type 2 diabetes mellitus with diabetic nephropathy; E11.22 Type 2 diabetes mellitus with diabetic chronic kidney disease; E11.40 Type 2 diabetes mellitus with diabetic neuropathy, unspecified; E66.01 Morbid (severe) obesity due to excess calories; Z88.8 Allergy status to other drugs, medicaments and biological substances; Z88.6 Allergy status to analgesic agent; Z91.010 Allergy to peanuts; I12.9 Hypertensive chronic kidney disease with stage 1 through stage 4 chronic kidney disease, or unspecified chronic kidney disease; J44.9 Chronic obstructive pulmonary disease, unspecified; M54.30 Sciatica, unspecified side; N18.3 Chronic kidney disease, stage 3 (moderate); Z86.73 Personal history of transient ischemic attack (TIA), and cerebral infarction without residual deficits; Z87.891 Personal history of nicotine dependence; Z99.81 Dependence on supplemental oxygen; Z79.82 Long term (current) use of aspirin; Z79.4 Long term (current) use of insulin
CPT/HCPCS: 36415; 99291; J3490; J7613; J7626; 71045; 80048; 80053; 82947; 82962; 85025; 86160; 87081; 93005; 93306; 94640; 96374; G0378; J0171; J1100; J1650; J0360; J1200; J1815; J2920; J2930; J7030

== ENCOUNTER 2019-05-05 08:58 | Emergency (ER) | payer MEDICAID ==
[~2019-05-05] VITALS: Ht 144.8 cm; Wt 113.6 kg
[~2019-05-05 08:58] MED LIST changes: +ASPI-496 PO; +CETI10CA PO; +DULA0.75 IM; -GLIM1TAB2 PO; +GLIM1TAB3 PO; -GLIM2TAB2 PO; +GLIM2TAB3 PO; -GUAI200T3 PO; +GUAI200T37 PO; -HYDR-3307 PO; +HYDR-36 PO; +PRED10TA PO; +RANI-448 PO
[2019-05-05] MEDS ORDERED: FAMOTIDINE 20 MG/2 ML ONE (09:09)
[2019-05-05] MEDS ORDERED: methylPREDNISolone SOD SUCC 125 MG/2 ML ONE (09:11)
[2019-05-05] MEDS ORDERED: FAMOTIDINE 20 MG/2 ML IVPush ONE (09:30)
[2019-05-05] MEDS ORDERED: methylPREDNISolone SOD SUCC 125 MG/2 ML IVPush ONE (09:30)
[2019-05-05 11:28] VITALS: BP 148/86
== END 2019-05-05 11:34 | disposition home or self-care (01) ==
LOC: ED 11:27
DX: T78.3XXA Angioneurotic edema, initial encounter (principal); J45.909 Unspecified asthma, uncomplicated; M19.90 Unspecified osteoarthritis, unspecified site; I10 Essential (primary) hypertension; E66.01 Morbid (severe) obesity due to excess calories; Z86.73 Personal history of transient ischemic attack (TIA), and cerebral infarction without residual deficits; Z90.89 Acquired absence of other organs; Z68.43 Body mass index [BMI] 50.0-59.9, adult
CPT/HCPCS: 96374; 96375; 99283; J2930; J3490